=== PATIENT | female | born 1970 | race Caucasian/White ===

== ENCOUNTER 2025-04-28 12:45 | Emergency (ER) | payer SELFPAY ==
[~2025-04-28] VITALS: Ht 160 cm; Wt 68.0 kg
[2025-04-28] MEDS ORDERED: Percocet 5-3251 EACH PO ×2 (16:11→16:16)
== END 2025-04-28 16:23 | disposition home or self-care (01) ==
LOC: ER 12:45
DX: S01.01XA Laceration without foreign body of scalp, initial encounter (principal); Z59.89 Other problems related to housing and economic circumstances; X58.XXXA Exposure to other specified factors, initial encounter
CPT/HCPCS: 99282